=== PATIENT | male | born 1960 | race Caucasian/White ===

== ENCOUNTER 2016-12-29 04:39 | Emergency (ER) | payer OTHER ==
[~2016-12-29] VITALS: Ht 177.8 cm; Wt 115.7 kg
[~2016-12-29 04:39] MED LIST: ASPIR 8181 MG PO; ATORVASTATIN CA10 MG PO; LANTUS SOLOS100 U/ML SC; METFORMIN HCL500 MG PO; NOVOLOG 10300 UNITS/ SC; PERCOCET 325 MG1 TA2 PO; PERCOCET 325 MG1 TA3 PO; QUINAPRIL40 MG PO; TOPROL XL 25MG25 MG PO; VITAMIN D1000 IU PO
[2016-12-29 04:41] VITALS: BP 183/102
[2016-12-29] MEDS ORDERED: ACULAR5 ML OPH (04:52)
[2016-12-29] MEDS ORDERED: MUCINEX600 M1 PO (04:52)
--- NOTE | 2016-12-29 04:53 | ED EAR COMPLAINT ---
History of Present Illness General Chief Complaint: Headache Stated Complaint: KAUFMAN CONGESTION,RT EAR PAIN, AND HUMMING SOUND IN EA Source: patient, old records Exam Limitations: no limitations Vital Signs & Intake/Output Vital Signs & Intake/Output Vital Signs Date Time Temp Pulse Resp B/P B/P Pulse O2 O2 Flow FiO2 Mean Ox Delivery Rate 12/29 0441 98.7 84 17 183/102 98 Room Air Allergies Coded Allergies: NO KNOWN ALLERGIES (10/14/14) Reconcile Medications Aspirin (Ecotrin) 81 MG TABLET.DR 1 TAB PO DAILY HEART HEALTH (Reported) Atorvastatin Calcium (Lipitor) 10 MG TABLET 1 TAB PO DAILY CHOLESTEROL ( Reported) Cholecalciferol (Vitamin D3) 1,000 UNIT TABLET 1,000 IU PO DAILY VITAMIN D SUPPLEMET (Reported) Guaifenesin (Mucinex) 600 MG TAB.ER.12H 1 TAB PO BID PRN NASAL CONGESTION Insulin Aspart, Recombinant (Novolog Flexpen) 100 UNIT/ML INSULN.PEN DIABETES ( Reported) Insulin Glargine, Recombinan (Lantus Solostar) 100 U/ML [place] 30 UNITS SC QPM DIABETES (Reported) Ketorolac Tromethamine (Acular) 0.5 % DROPS 1 GTT OPH 4 TIMES/DAY PRN EAR ACHE Metformin Hydrochloride (Metformin HCl) 500 MG TAB 2 TAB PO BID DIABETES ( Reported) Metoprolol Succ XL (Toprol XL 25MG) 50 MG TAB.ER.24H 1 TAB PO DAILY BP ( Reported) OXYCODONE HCL/ACETAMINOPHEN (Percocet 7.5-325 MG Tablet) 325 MG/7.5 MG TAB 1 TAB PO Q6P PRN PAIN Quinapril Hydrochloride (Quinapril) 40 MG TAB 1 TAB PO DAILY BP (Reported) Triage Nurses Notes Reviewed? yes HPI: Patient presents with a 4 day history of nasal congestion. Patient started using nasal spray 2 days ago. Since yesterday pulse of his ears and felt clogged and last night his right ear began to throb. There is no radiation of pain. There is no aggravating or mitigating factors. There are no fevers or chills. He rates the pain at 6 out of 10. Past History Travel History Traveled to [place] past 21 day No Medical History Any Pertinent Medical History? see below for history Cardiovascular: hypertension Endocrine: diabetes Surgical History Surgical History: non-contributory Psychosocial History What is your primary language Yemeni Tobacco Use: Current Not Daily ETOH Use: occasional use Illicit Drug Use: denies illicit drug use Family History Hx Contributory? No Review of Systems Review of Systems Constitutional: Reports: no symptoms. EENTM: Reports: see HPI, ear pain, hearing changes, nasal congestion. Respiratory: Reports: no symptoms. Cardiovascular: Reports: no symptoms. GI: Reports: no symptoms. Musculoskeletal: Reports: no symptoms. Neurological/Psychological: Reports: no symptoms. Hematologic/Endocrine: Reports: no symptoms. Physical Exam Physical Exam General Appearance: well developed/nourished, alert, awake Head: atraumatic, normal appearance Eyes: Bilateral: PERRL, EOMI. Ears: Bilateral: canal normal, Tympanic normal, other (FLUID BEHIND BOTH TM'S). Nose: normal inspection Mouth/Throat: normal mouth inspection, pharynx normal Cardiovascular/Respiratory: normal breath sounds, normal peripheral pulses, regular rate/rhythm, no respiratory distress Neurologic/Psych: no motor/sensory deficits, awake, alert, oriented x 3, normal gait, normal mood/affect Progress Differential Diagnoses I considered the following diagnoses in my evaluation of the patient: [SINUS CONGESTION, OTITIS MEDIA, OTITIS EXTERNA] Plan of Care: Current Medications Sig/Jenn Start time Last Medication Dose Stop Time Status Admin Ibuprofen 600 MG ONCE ONE 12/29 0500 UNVr (Motrin) 12/29 0501 Initial ED EKG: none Departure Departure Disposition: HOME OR SELF CARE Condition: Stable Clinical Impression Primary Impression: Sinus congestion Referrals: DENISE THOMASON,AUNG Gomez (PCP/Family) Additional Instructions: CONTINUE THE NASAL SPRAY USE EAR DROPS NEEDED Departure Forms: Customer Survey General Discharge Information Prescriptions: Current Visit Scripts Ketorolac Tromethamine (Acular) 1 GTT OPH 4 TIMES/DAY PRN EAR ACHE #5 ML Guaifenesin (Mucinex) 1 TAB PO BID PRN NASAL CONGESTION #20 TAB
== END 2016-12-29 05:13 ==
LOC: ERH 04:39
DX: R09.81 Nasal congestion (principal)